=== PATIENT | male | born 1970 | race Two or more races ===

== ENCOUNTER 2025-04-10 17:59 | Emergency (ER) | payer MEDICAID, SELFPAY ==
[2025-04-10 18:29] VITALS: BP 174/94; PULSE 108; RESP 18; TEMP 36.8; O2SAT 95; BMI 31.3
--- NOTE | 2025-04-10 18:44 | EDNOTE_ITS ---
Neuro Symptoms Deficit-RME/HPI General Chief Complaint: General Adult/Misc Complain Stated Complaint: R) FACIAL DROOP X 3 DAYS Time Seen by Provider: 04/10/25 18:33 Arrival date/time: 04/10/25 17:59 55M with no significant PMH presents to ED with 3 days of R-sided facial droop. Patient denies blurry vision, AMS, seizures, N/V, dizziness, weakness, and LOC. Limitations: no limitations Related Data Previous Rx's ?Medication ?Instructions ?Recorded prednisone 20 mg tablet 40 mg (2 x 20 mg) PO BID 7 d ays 04/10/25 #28 tabs valacyclovir 1 gram tablet 1,000 mg PO QDAY 7 days #7 tabs 04/10/25 (Valtrex) Allergies Allergy/AdvReac Type Severity Reaction Status Date / Time No Known Allergies Allergy Verified 04/10/25 18:02 Review of Systems Review of Systems Systems Reviewed: All systems reviewed, normal except as documented ENT Ears, Nose, Mouth, and Throat: Reports as per HPI and Reports other (facial droop) Past Medical History Social History SMOKING STATUS: Never smoker ED Exam General Limitations: Present no limitations General appearance: Present alert and in no apparent distress Head Head exam: Present atraumatic Eye Eye exam: Present normal appearance, PERRL and EOMI ENT ENT exam: Present normal oropharynx, mucous membranes moist and other (R facial droop) Neck Neck exam: Present normal inspection, full ROM and trachea midline Chest Chest inspection: Present normal inspection and symmetric chest wall rise Extremities Exam Extremities exam: Present normal inspection and full ROM Neurological Exam Neurological exam: Present alert and oriented X3 Psychiatric Psychiatric exam: Present normal affect and normal mood Skin Skin exam: Present warm, dry, intact and normal color Course Quality Measures none Orders Category Date Time Status predniSONE Med 04/10/25 18:38 Discontinued 80 mg PO X1 ONE Vital Signs Vital signs: Vital Signs Temperature 98.2 F 04/10/25 18:29 Pulse Rate 108 H 04/10/25 18:29 Respiratory Rate 18 04/10/25 18:29 Blood Pressure 174/94 H 04/10/25 18:29 Pulse Oximetry (%) 95 04/10/25 18:29 Oxygen Delivery Method Room Air 04/10/25 18:29 O2 at 95% on RA and WNLs Neuro Symptoms / Deficit MDM Narrative MDM Narrative:: 55M with no significant PMH presents to ED with 3 days of R-sided facial droop. Patient denies blurry vision, AMS, seizures, N/V, dizziness, weakness, and LOC. Physical exam reveals R-facial droop including forehead and R eye blinking. Normal pupil response and EOM. Gait normal. Strength equal bilaterally. Neg pronator drift test. Patient is afebrile, calm, and alert. Meds and genetic counsellor given. Patient data External records reviewed:: None Clinical information provided by:: patient Social determinants that could affect healthcare access:: none Patient has the following chronic illnesses:: none How is presenting disease/condition affected by chronic disease/condition?: no chronic disease Evaluation data The following diagnostics were reviewed and interpreted by me:: other (specify) (none) Lab and/or radiology exams considered but not ordered:: not ordered Interpretation Summary: n/a Medications / Prescriptions Medications or Prescriptions considered but not ordered:: ordered Medication administrations:: Medication Administration History Discontinued Medications Prednisone (Prednisone 20 Mg Tablet) 80 mg PO X1 ONE Stop: 04/10/25 18:39 above Consultations Consultation(s) initiated? (list below): No Diagnosis Neuro Differential Diagnosis: carpal tunnel syndrome, convulsions, delirium, subarachnoid hemorrhage, peripheral neuropathy, cerebrovascular accident, multiple sclerosis, transient cerebral ischemia and other (Ventura's Palsy) Most likely diagnosis given after review of the tests above:: Ventura's Palsy Admission Indicated Admission indicated?: not indicated Admission Request Was there a request for admission?: No Disposition Plan Disposition Plan: Discharge Discharge Attestation Discharge Attestation: The patient and all family members were given an opportunity to ask questions and understood the discharge instructions. Discharge instructions specifically effects, indications for sooner follow up or return to the emergency department, and the expected course of current diagnosis. Patient condition: Stable Discharge Plan Plan Patient Disposition: HOME (Self Care) Discharge Disposition comment: Stable Prescriptions/Referrals Prescriptions/Med Rec: New valacyclovir [Valtrex] 1 gram tablet 1,000 mg PO QDAY 7 Days Qty: 7 0RF prednisone 20 mg tablet 40 mg PO BID 7 Days Qty: 28 0RF Problem List Clinical Impression: Ventura's palsy Patient/Caregiver Discharge Instructions Education Materials: ED Ventura's Palsy Additional Instructions: Please follow-up with PCP within 24-48 hours and return immediately if symptoms worsen. Keep eyes either taped close at night or but eye drops/ointment. Print Language: Bhutanese Stand Alone Forms: Patient Portal Info Letter PA/INDUSTRIAL RELATIONS COMMISSIONER Supervising Physician PA/INDUSTRIAL RELATIONS COMMISSIONER Supervising Physician: Dr. Lunsford
== END 2025-04-10 18:50 | disposition home or self-care (01) ==
LOC: SERX 18:57
PROVIDERS: Emergency Provider Emergency Medicine
DX: G51.0 Bell's palsy (principal)
CPT/HCPCS: 99281; J7512